=== PATIENT | male | born 1975 | race Caucasian/White ===

== ENCOUNTER 2024-11-01 09:40 | Outpatient (CLI) | payer BC ==
[2024-11-01 10:37] LABS: #Basophils 0.03 10x3/uL (0.0-0.2); #Eosinophils 0.11 10x3/uL (0.0-0.5); #Monocytes 0.67 10x3/uL (0.0-1.1); #Neutrophils 5.57 10x3/uL (1.5-8.4); %Basophils 0.3 % (0.0-2.0); %Eosinophils 1.2 % (0.0-6.0); %Monocytes 7.1 % (0.0-10.0); %Neutrophils 59.2 % (40.0-75.0); Hematocrit 45.6 % (38.8-50.0); Hemoglobin 15.3 g/dL (13.5-17.5); Mean Corpuscular HGB CONC 33.6 g/dL (32.0-36.0); Mean Corpuscular Hemoglobin 27.7 pg (27.0-33.0); Mean Corpuscular Volume 82.6 fL (81.2-95.1); Mean Platelet Volume 10.1 fL (7.4-10.4); Platelet Count 269 10x3/uL (150-450); RBC Distribution Width 12.1 % (11.5-14.5); Red Blood Cell (RBC) Count 5.52 10x6/uL (4.32-5.72); White Blood Cell (WBC) Count 9.4 10x3/uL (3.5-10.5)
[2024-11-01 12:15] LABS: Anion Gap 14 mmol/L (10-20); BUN (Urea Nitrogen) 11 mg/dL (8.9-20.6); Calc. Creatinine Clearance 0 mL/min (70-130); Calcium 8.6 mg/dL (7.8-10.44); Carbon Dioxide 24 mmol/L (22-29); Chloride 107 mmol/L (98-107); Estimated GFR 97; Glucose 113 mg/dL (70-105); Potassium 4.2 mmol/L (3.5-5.1); Sodium 141 mmol/L (136-145)
== END 2024-11-01 09:41 | disposition home or self-care (01) ==
LOC: CSHLAB 09:40
PROVIDERS: ATTEND Specialist
DX: Z01.818 Encounter for other preprocedural examination (principal); K21.9 Gastro-esophageal reflux disease without esophagitis
CPT/HCPCS: 80048; 85025; 93005; 93010

== ENCOUNTER 2024-11-07 08:30 | Observation (INO) | payer BC ==
[2024-11-07] MEDS ORDERED: Acetaminophen 500 MG TAB ONE (08:52)
[2024-11-07] MEDS ORDERED: Ketorolac Tromethamine 30 MG (1 mL) VIAL ONE (08:52)
[2024-11-07] MEDS ORDERED: Lidocaine 2% PF 5 ML VIAL ONE (09:56)
[2024-11-07] MEDS ORDERED: Ondansetron PF 4 MG/2 ML Vial ONE (09:56)
[2024-11-07] MEDS ORDERED: Fentanyl 250 MCG/5 ML VIAL ONE (09:56)
[2024-11-07] MEDS ORDERED: Dexamethasone 20 MG/5 ML VIAL ONE (09:56)
[2024-11-07] MEDS ORDERED: Midazolam HCl 2 mg/2 ml Vial ONE (09:56)
[2024-11-07] MEDS ORDERED: PROPOFOL 20 ML ONE (09:56)
[2024-11-07] MEDS ORDERED: Rocuronium Bromide 10 MG/ML (10ML VIAL) ONE (09:56)
[2024-11-07] MEDS ORDERED: Bupivacaine/Epinephrine 0.25% 30 ML VIAL ONE (10:56)
[2024-11-07] MEDS ORDERED: CEFAZOLIN 2 GM VIAL ONE (11:17)
[2024-11-07] MEDS ORDERED: SUGAMMADEX SODIUM 200 MG/2 ML VIAL ONE (11:48)
[2024-11-07] MEDS ORDERED: fentaNYL 50 mcg/mL 1 mL Vial ONE (12:35)
[2024-11-07] MEDS ORDERED: Dextrose 50% Abboject 50 ML SYRINGE SLOW IVP PRN (13:23)
[2024-11-07] MEDS ORDERED: Ondansetron PF 4 MG/2 ML Vial IVP PRN (13:23)
[2024-11-07] MEDS ORDERED: Dextrose 5% in Water 1,000 ML IV PRN (13:23)
[2024-11-07] MEDS ORDERED: Morphine 2 MG/ML VIAL SLOW IVP PRN (13:23)
[2024-11-07] MEDS ORDERED: Promethazine HCl 25 MG/ML VIAL IM PRN (13:23)
[2024-11-07] MEDS ORDERED: hydrALAZINE 20 MG/ML VIAL SLOW IVP PRN (13:23)
[2024-11-07] MEDS ORDERED: Acetaminophen 325 MG TAB PO PRN (13:23)
[2024-11-07] MEDS ORDERED: Glucagon 1 MG/ML KIT IM PRN (13:23)
[2024-11-07] MEDS ORDERED: Morphine 4 MG/ML VIAL SLOW IVP PRN (13:23)
[2024-11-07] MEDS ORDERED: HYDROcodone/Acetaminophen 10/325 mg Tablet PO PRN (13:23)
[2024-11-07] MEDS ORDERED: Ipratropium/Albuterol 3 ML NEB NEB PRN (13:23)
[2024-11-07] MEDS: D5 1/2 NS w/20 mEq KCL 1,000 ML IV SCH (15:57)
[2024-11-07] MEDS: Ketorolac Tromethamine 30 MG (1 mL) VIAL IVP SCH (17:53)
[2024-11-07] MEDS: Famotidine 20 MG TAB PO SCH (20:41)
[2024-11-07] MEDS ORDERED: Famotidine/PF 20 mg/2ml Vial SLOW IVP PRN (21:00)
[2024-11-08] MEDS: Ketorolac Tromethamine 30 MG (1 mL) VIAL IVP SCH (00:17)
[2024-11-08 04:12] LABS: Anion Gap 13 mmol/L (10-20); BUN (Urea Nitrogen) 14 mg/dL (8.9-20.6); Calc. Creatinine Clearance 140 mL/min (70-130); Calcium 8.4 mg/dL (7.8-10.44); Carbon Dioxide 21 mmol/L (22-29); Chloride 107 mmol/L (98-107); Estimated GFR 110; Glucose 139 mg/dL (70-105); Potassium 4.4 mmol/L (3.5-5.1); Sodium 137 mmol/L (136-145)
[2024-11-08 04:18] LABS: #Basophils 0.01 10x3/uL (0.0-0.2); #Monocytes 0.76 10x3/uL (0.0-1.1); #Neutrophils 11.07 10x3/uL (1.5-8.4); %Basophils 0.1 % (0.0-2.0); %Lymphocytes 12.6 % (18.0-47.0); %Monocytes 5.6 % (0.0-10.0); %Neutrophils 81.3 % (40.0-75.0); Hematocrit 41.5 % (38.8-50.0); Mean Corpuscular HGB CONC 33.7 g/dL (32.0-36.0); Mean Corpuscular Hemoglobin 27.4 pg (27.0-33.0); Mean Corpuscular Volume 81.2 fL (81.2-95.1); Mean Platelet Volume 10.5 fL (7.4-10.4); Platelet Count 233 10x3/uL (150-450); RBC Distribution Width 12.1 % (11.5-14.5); Red Blood Cell (RBC) Count 5.11 10x6/uL (4.32-5.72); White Blood Cell (WBC) Count 13.6 10x3/uL (3.5-10.5)
[2024-11-08] MEDS: Pantoprazole DR 40 MG TAB PO SCH (08:32)
[2024-11-08] MEDS: Amlodipine 5 MG TAB PO SCH (08:32)
[2024-11-08 10:16] VITALS: BMI 27.1
[2024-11-08 12:19] VITALS: BP 145/81; TEMP 97.6
== END 2024-11-08 13:10 | disposition home or self-care (01) ==
LOC: CSHSDC 08:30 → CSHTELE 10:29
PROVIDERS: ADMIT Specialist; ATTEND Specialist
PROC: 0DV44ZZ Restriction of Esophagogastric Junction, Percutaneous Endoscopic Approach (ICD-10-PCS; principal; 2024-11-07)
PROC: 0BQT4ZZ Repair Diaphragm, Percutaneous Endoscopic Approach (ICD-10-PCS; 2024-11-07)
DX: K21.9 Gastro-esophageal reflux disease without esophagitis (principal); K44.9 Diaphragmatic hernia without obstruction or gangrene; I10 Essential (primary) hypertension; Z98.52 Vasectomy status; Z98.890 Other specified postprocedural states; Z79.899 Other long term (current) drug therapy
CPT/HCPCS: 36415; 80048; 85025; 94760; J1100; J1885; J2250; J2405; J2704; J3010; J3480; S2900